=== PATIENT | female | born 1930 | race Caucasian/White ===

== ENCOUNTER → 2016-08-04 | Outpatient (CLI) | payer MEDICARE ==
[~2016-08-04] MED LIST: ADVAIR 115-21 INH; ADVAIR HFA 115-12 GM INH; ALBUTEROL1.25 MG/3 INH; ALBUTEROL17 GM INH; ASPIRINEC PO; CALTRATE + D PO; CALTRATE PLUS T1 TAB PO; CINNAMON PO; COMBIVENT INH14.7 GM INH; FISH OIL 1,0001 CAP PO; FOLIC ACID PO; GARLIC OIL1000 MG PO; GARLIQUE PO; IBUPROFEN PO; KETOPROFEN PO; LASIX20 MG PO; LEVAQUIN PO; LISINOPRIL20 MG PO; MAG-OXIDE400 MG PO; MAGNESIUM OXIDE PO; MEDROL PO; METOPROLOL TAR25 MG PO; PRAVACHOL20 MG PO; PRAVASTATIN SOD20 MG PO; PRINIVIL20 M1 PO; PROAIR HFA8.5 GM IH; SPIRIVA18 MCG INH; TOPROL XL PO; VIT E PO; VITAMIN C PO; VITAMIN D 4001 UDTAB PO; VITAMIN D PO; VITAMIN D31000 UNIT PO; ZESTORETIC 20/11 TAB PO
== END | disposition home or self-care (01) ==
LOC: CSSDAY 09:37
DX: N18.3 Chronic kidney disease, stage 3 (moderate) (principal); D63.1 Anemia in chronic kidney disease; Z79.899 Other long term (current) drug therapy
CPT/HCPCS: 96374; Q0138